=== PATIENT | female | born 1945 | race Caucasian/White ===

== ENCOUNTER 2019-08-01 20:23 | Outpatient (REF) | payer SELFPAY ==
[2019-08-01 20:46] LABS: Estmated Average Glucose 131; Hemoglobin A1C 6.2 % (4.0-6.0)
[2019-08-01 22:07] LABS: Chol HDL Ratio 4.75 mg/dL (0.0-4.40); Cholesterol 242 mg/dL (0-200); Glucose 87 mg/dL (65-115); HDL Cholesterol 51 mg/dL (60-100); LDL Cholesterol Calculated 166 mg/dL (50-129); LDL HDL Ratio 3.25 RATIO (0.00-3.22); Triglycerides 126 mg/dL (0-150)
== END 2019-08-01 20:24 | disposition home or self-care (01) ==
LOC: LAB 20:23
PROVIDERS: Family Provider Nurse Practitioner Family; Visit Provider Dermatology
DX: Z13.9 Encounter for screening, unspecified (principal)
CPT/HCPCS: 80061; 82947; 83036

== ENCOUNTER → 2020-08-01 10:53 | Outpatient (BNVA) | payer SELFPAY | PROVIDERS: Family Provider Nurse Practitioner Family; Visit Provider Family Medicine | DX: Z13.6 Encounter for screening for cardiovascular disorders (principal) | CPT/HCPCS: 80061; 82947; 83036 ==

== ENCOUNTER 2020-10-01 10:13 | Outpatient (CLI) | payer MEDICARE, OTHER, SELFPAY ==
--- NOTE | 2020-10-01 10:23 | MM_ITS ---
WS: [id number] Exam: [place] [id number] Date/Time of Exam: 10/01/2020 10:34 AM Reason For Exam: HX BREAST CA;RT MAST VIEWS: MLO and CC views both breasts. Comparison made with prior exam of 05/02/2014, 02/12/2017 and 09/20/2018. Findings: There was no sign of mass, architectural distortion or suspicious calcification in either breast. He terogeneously dense MM/[place] [id number] Impression: BI-RADS: 2-Benign FOLLOW-UP: 1 Year Follow-up This mammogram was also analyzed by the Computer Aided Detection System R2 Imag e Geomorphology Teacher.
--- NOTE | 2020-10-01 10:23 | MR_ITS ---
WS: [id number] MRI THORACIC SPINE without contrast. HISTORY: BACK PAIN COMPARISON: None available. TECHNIQUE: Multiplanar sequences are performed in sagittal and axial planes. Slight increase in the thoracic kyphosis centered in the upper thoracic spine. Very mild RIGHT curvat ure. No acute compression fractures. There is no marrow edema. No chronic compression fracture. Signa l within the cord is normal. Conus tapers normally ends at L1. T1-2: Normal. T2-3: Bilateral foraminal stenosis is mild. T3-4: Normal. T4-5: Mild bilateral facet joint arthritis. T5-6: Normal. T6-7: Normal. T7-8: Mild facet joint arthritis with a very tiny central disc protrusion. No stenosis. T8-9: Normal. T9-10: Mild bilateral facet joint arthritis encroaching into the thecal sac. Mild foraminal narrowin g. T10-11: Mild bilateral foraminal narrowing. T11-12: Normal. Multiple cystic masses are identified within the liver. Cluster of lobulated cyst measures 4.6 x 2.2 cm. There are additional cysts present. To confirm their benign nature additional imaging should be o btained. MR/MR thoracic spin wo con* [id number] IMPRESSION: 1. Multilevel mild facet joint arthritis as described above. No significant ce ntral stenosis. 2. Multilevel mild foraminal narrowing as above. 3. Multiple cystic masses are noted within the liver. Incompletely visualized and further characterization is recommended. Consider ultrasound RIGHT upper qu adrant or CT abdomen and pelvis with contrast.
== END 2020-10-01 10:14 | disposition home or self-care (01) ==
LOC: RADSHAW 10:19
PROVIDERS: PCP Nurse Practitioner Family; Visit Provider Nurse Practitioner Family
DX: M54.6 Pain in thoracic spine (principal); M47.814 Spondylosis without myelopathy or radiculopathy, thoracic region; Z85.3 Personal history of malignant neoplasm of breast; Z90.11 Acquired absence of right breast and nipple
CPT/HCPCS: 72146; 77065

== ENCOUNTER 2020-10-22 11:16 | Outpatient (CLI) | payer MEDICARE, OTHER, SELFPAY ==
--- NOTE | 2020-10-22 11:21 | CT_ITS ---
WS: [id number] CT ABDOMEN PELVIS TECHNIQUE: Contrast-enhanced CT of the abdomen and pelvis with coronal and sagittal reformatted image s. CLINICAL INFORMATION: CYSTIC LESIONS LIVER/ABN MRI/HX OF BREAST CANCER COMPARISON: MRI thoracic October 01, 2020 DLP: 917.[address] scans at [facility] use at least one of these dose optimization techniques: automat ed exposure control; mA and/or kV adjustment per patient size (includes targeted exams where dose is matched to clinical indication); or iterative reconstruction. FINDINGS: Diffuse fatty infiltration of the liver. Multiple simple appearing cysts in both hepatic lobes. Large st cyst in left hepatic lobe dome of the liver with a few septations measuring 5.3 x 4.2 x 6.3 CM. No rmal portal vein and splenic vein. Gallbladder is contracted. Large esophageal hiatal hernia. Atelect asis in the lung bases. Normal spleen. Adrenal glands are normal. Normal renal parenchymal enhancement. No hydronephrosis. Normal pancreas. Normal caliber abdominal aorta. Mild aortic calcification. No abdominal lymphadenopathy. Sigmoid div erticulosis. No evidence of acute diverticulitis. Fat-containing umbilical hernia. No pelvic or ingui nal lymphadenopathy. Lumbar curve convex left. Benign appearing bone lesion right ilium. CT/CT abdomen pelvis w con* [id number] IMPRESSION: 1. Diffuse fatty infiltration of the liver. 2. Numerous hepatic cysts in both hepatic lobes largest in the left hepatic lo be described above. 3. No hydronephrosis in either kidney. 4. Large esophageal hiatal hernia. 5. Fat-containing umbilical hernia. 6. Sigmoid diverticulosis. No evidence of acute diverticulitis.
[2020-10-22] MEDS: iohexol 300 mg/mL 50 mL Btl IV (11:40)
[2020-10-22 12:24] LABS: Blood Urea Nitrogen 16 mg/dL (8-23)
[2020-10-22] MEDS: iohexol 300 mg/mL 100 mL Btl IV (12:55)
== END 2020-10-22 11:17 | disposition home or self-care (01) ==
PROVIDERS: PCP Nurse Practitioner Family; Visit Provider Nurse Practitioner Family
DX: Q44.6 Cystic disease of liver (principal); Z85.3 Personal history of malignant neoplasm of breast; R93.5 Abnormal findings on diagnostic imaging of other abdominal regions, including retroperitoneum; K76.0 Fatty (change of) liver, not elsewhere classified; K44.9 Diaphragmatic hernia without obstruction or gangrene; K42.9 Umbilical hernia without obstruction or gangrene; K57.30 Diverticulosis of large intestine without perforation or abscess without bleeding
CPT/HCPCS: 36415; 74177; 82565; 84520

== ENCOUNTER 2020-12-03 06:01 | Outpatient (CLI) | payer MEDICARE, OTHER, SELFPAY ==
--- NOTE | 2020-12-03 06:47 | AMB.MCA ---
Patient Information Referred by: Primary care physician Symptom onset date: 11/26/20 COVID 19 common symptoms: positive cough, dyspnea, fatigue and body aches COVID 19 other sytmptoms: negative requiring more oxygen Severity: mild Treatment prior to arrival: acetaminophen OZH COVID test results: No Data to Display outside results available, scanned Criteria/Plan Inclusion/Exclusion Criteria weight >/= 40kg age >/= 65, has diabetes and age >/= 55 and has hypertension not requiring hospitalization, not requiring oxygen (if not chronically on oxygen) and no increase oxygen requirement (if chronically on oxygen) Patient education patient/family/caregiver received/reviewed fact sheet, Emergency Use Authorization/unapproved drug status discussed with patient/family/caregiver, alternatives to this treatment discussed with patient/family/caregiver, risks and benefits of medication reviewed with patient/family/caregiver, patient/family/caregiver given opportunity for questions, which were answered and patient consents to receiving Monoclonal Antibody Treatment Plan for treatment Meets criteria for Monoclonal Antibody infusion Ordering Monoclonal Antibody infusion for today Other information Discussion of risk benefits and alternatives. Patient had done quite a bit of [employer] research prior to arrival. She initially requested band maneuver Mab as a mono treatment. Discussed with her that that is no longer approved. Recommend the Regeneron because it of its slightly improved efficacy with many of the current circulating COVID-19 variance. Ultimately patient agreed to the Regeneron.
[2020-12-03 06:58] VITALS: BMI 23.3
[2020-12-03 06:59] VITALS: BP 151/85; PULSE 70; RESP 18; O2SAT 94
[2020-12-03 08:39] VITALS: BP 175/94; PULSE 66; RESP 14; O2SAT 93
[2020-12-03 09:08] VITALS: BP 139/68; PULSE 65; RESP 16; O2SAT 98
[2020-12-03 10:07] VITALS: BP 128/79; PULSE 66; RESP 15; O2SAT 96
--- NOTE | 2020-12-03 10:32 | PC.NURSE ---
Regen infusion complete; vs stable with no adverse effects noted; pt ambulated to exit independently in nad.
== END 2020-12-03 06:02 | disposition home or self-care (01) ==
LOC: ER 06:02
PROVIDERS: PCP Nurse Practitioner Family; Visit Provider Nurse Practitioner Family
DX: U07.1 COVID-19 (principal)
CPT/HCPCS: 96365

== ENCOUNTER → 2021-06-13 11:55 | Outpatient (BNVA) | payer MEDICARE, OTHER, SELFPAY | PROVIDERS: PCP Nurse Practitioner Family; Visit Provider Nurse Practitioner Family | DX: Z20.822 Contact with and (suspected) exposure to COVID-19 (principal); R50.9 Fever, unspecified; R05.9 Cough, unspecified | CPT/HCPCS: 87635 ==

== ENCOUNTER 2021-07-23 10:14 | Emergency (ER) | payer MEDICARE, OTHER, SELFPAY ==
[2021-07-23 10:34] VITALS: BP 172/77; PULSE 81; RESP 16; TEMP 36.8; O2SAT 97; BMI 23.0
--- NOTE | 2021-07-23 10:44 | XR_ITS ---
WS: [id number] PORTABLE CHEST HISTORY: chest pain COMPARISON: None available. Lungs are clear and well expanded. No pleural effusion or pneumothorax. Cardiac size: Normal. Mediastinum/Aorta: Normal mediastinum. No osseous abnormality seen. XR/XR chest 1V portable [id number] IMPRESSION: Unremarkable portable chest.
--- NOTE | 2021-07-23 10:52 | W.ED.CHESTPA ---
HPI - Chest Pain General: Chief Complaint: Chest Pain Stated Complaint: Chest Pains Time Seen by Provider: 07/23/21 10:44 History of Present Illness: 76-year-old female presents to the emergency room with complaint of chest discomfort. She has describes a left-sided chest discomfort that radiates slightly inferiorly but not into her arms or neck sometimes into the right side of her back. About a week ago she was seen by her primary care doctor with racing heart rate they gave her some medication for anxiety. I do not have the name of the medication at the time of dictation. States her heart rate when she seen the doctor was up to 130. She states that medicine seems to make the chest discomfort better. She does get some shortness of breath with it no diaphoresis. She she has not had any known previous episode of coronary artery disease she is not diabetic. MD complaint: chest discomfort Onset (ago): week(s) (1) Timing of current episode: episodic Onset: during rest Pain location: left chest Pain radiation: back Severity: mild Quality: sharp Relieving factors: other (Medication) Exacerbating factors: nothing Associated symptoms: Reports palpitations; Deny abdominal pain, diaphoresis, dyspnea, fever(s), leg edema, nausea, sense of impending doom, syncope or vomiting Treatment prior to arrival: none Review of Systems Const: Denies: fever(s) or diaphoresis ENMT: Denies: throat pain, ear or mastoid pain, nasal discharge or nasal congestion Card: Reports: chest pain and palpitations; Denies: syncope Resp: Denies: dyspnea GI: Denies: abdominal pain, nausea or vomiting : Denies: flank pain, difficulty voiding, dysuria, urinary frequency or urinary urgency Skin/Breast: Denies: rash or pruritus PFS ED PFSH: Medical History Anxiety Social History Smoking and tobacco status: never smoked Physical Exam Const: COMMON NORMALS: no acute distress GENERAL APPEARANCE: cooperative and comfortable ORIENTATION/CONSCIOUSNESS: Yes awake, Yes oriented to person, Yes oriented to place and Yes oriented to time HENMT: COMMON NORMALS: normocephalic, atraumatic and hearing grossly normal bilaterally HEAD & SCALP: normocephalic and atraumatic Neck/C-Spine: COMMON NORMALS: no JVD Resp: COMMON NORMALS: normal respiratory effort, No retractions, No use of accessory muscles and clear to auscultation bilaterally AUSCULTATION: clear to auscultation bilaterally Cardio: COMMON NORMALS: no JVD, regular rate, regular rhythm and No murmurs present (Cardio) RATE: regular rate RHYTHM: regular rhythm GI: COMMON NORMALS: Soft to palpation and No hepatosplenomegaly present AUSCULTATION: Yes normoactive bowel sounds PALPATION: Yes Soft to palpation, No Tenderness to palpation present (GI), No Guarding due to palpation present (GI) and Yes No hepatosplenomegaly present Extremity: COMMON NORMALS: normal to inspection, capillary refill normal, no clubbing, cyanosis or edema, no calf tenderness and no pedal edema Neuro: SENSORIUM/ORIENTATION: Yes oriented to person, Yes oriented to place and Yes oriented to time Skin: COMMON NORMALS: no rashes or lesions noted GENERAL SKIN EXAM: no rashes or lesions noted Course Vital Signs: Vital signs: Vital Signs Temperature 98 F 07/23/21 16:04 Pulse Rate 72 07/23/21 16:04 Respiratory Rate 18 07/23/21 16:04 Blood Pressure 115/61 07/23/21 16:04 Pulse Oximetry 96 07/23/21 16:04 MDM - Chest Pain Medical Decision Making Labs imaging and EKG reviewed patient has very atypical symptoms beginning when discharged home set up for an outpatient stress test as well as a Holter monitor. Have her start aspirin daily. Continue her other medications particularly the metoprolol. Return if she has further problems. Medical Records I reviewed the patient's medical records. Lab Data I reviewed the patient's lab results. : 07/23/21 11:05 07/23/21 11:05 Radiology Impressions Chest X-Ray 07/23/21 10:44 IMPRESSION: Unremarkable portable chest. Laboratory Results WBC 7.3 10^3/uL (4.0-10.0) 07/23/21 11:05 RBC 4.60 10^6/uL (4.1-5.3) 07/23/21 11:05 Hgb 13.7 g/dL (11.5-15.3) 07/23/21 11:05 Hct 42.2 % (37.0-47.0) 07/23/21 11:05 MCV 91.7 fl (81-99) 07/23/21 11:05 MCH 29.8 pg (28.0-34.0) 07/23/21 11:05 MCHC 32.5 g/dL (30.0-36.0) 07/23/21 11:05 RDW 13.8 % (12.1-15.1) 07/23/21 11:05 Plt Count 268 10^3/cmm (130-400) 07/23/21 11:05 MPV 11.0 fL (7.4-10.4) H 07/23/21 11:05 Neut % (Auto) 73.9 % 07/23/21 11:05 Lymph % (Auto) 17.1 % 07/23/21 11:05 [place] % (Auto) 8.1 % 07/23/21 11:05 Eos % (Auto) 0.3 % 07/23/21 11:05 Baso % (Auto) 0.3 % 07/23/21 11:05 Neut # (Auto) 5.38 10^3/uL (1.8-7.7) 07/23/21 11:05 Lymph # (Auto) 1.2 10^3/uL (0.8-4.8) 07/23/21 11:05 [place] # (Auto) 0.6 10^3/uL (0.2-0.9) 07/23/21 11:05 Eos # (Auto) 0.0 10^3/uL (0.0-0.8) 07/23/21 11:05 Baso # (Auto) 0.0 10^3/uL (0.0-0.1) 07/23/21 11:05 Nucleated RBC % (auto) 0 % 07/23/21 11:05 Nucleated RBCs # 0.0 /100WBC 07/23/21 11:05 Sodium 140 mmol/L (136-145) 07/23/21 11:05 Potassium 4.7 mmol/L (3.5-5.1) 07/23/21 11:05 Chloride 103 mmol/L (98-107) 07/23/21 11:05 Carbon Dioxide 25 mmol/L (22-29) 07/23/21 11:05 Anion Gap 16.7 (5-19) 07/23/21 11:05 BUN 16 mg/dL (8-23) 07/23/21 11:05 Creatinine 0.5 mg/dL (0.5-0.9) 07/23/21 11:05 GFR Calculation Not Reportable 07/23/21 11:05 Glucose 81 mg/dL (65-115) 07/23/21 11:05 Calculated Osmolality 290 mOsm/kg (285-295) 07/23/21 11:05 Calcium 9.3 mg/dL (8.5-10.5) 07/23/21 11:05 Total Bilirubin 0.2 mg/dL (0.15-1.2) 07/23/21 11:05 AST 25 U/L (0-32) 07/23/21 11:05 ALT 18 U/L (0-33) 07/23/21 11:05 Alkaline Phosphatase 122 IU/L (35-105) H 07/23/21 11:05 Troponin T Baseline 14 ng/L (0-10) H 07/23/21 11:05 Troponin T 120 Minute 13.44 ng/L (0-10) H 07/23/21 13:57 Delta Troponin T -0.56 ABS# (0-10) L 07/23/21 13:57 Total Protein 6.7 g/dL (6.6-8.7) 07/23/21 11:05 Albumin 4.2 g/dL (3.5-5.2) 07/23/21 11:05 Globulin 2.5 g/dL (1.3-4.6) 07/23/21 11:05 Discharge Plan Discharge Patient Disposition: Home Clinical Impression: Atypical chest pain, Heart palpitations Condition: Stable Prescriptions: No Action lorazepam 0.5 mg tablet 0.25 - 0.5 mg PO BID PRN (Reason: Anxiety) 0RF pantoprazole 40 mg tablet,delayed release (DR/EC) 40 mg PO DAILY PRN (Reason: Heartburn) 0RF metoprolol succinate 25 mg tablet extended release 24 hr 25 mg PO DAILY 0RF olmesartan 20 mg tablet 10 mg PO DAILY 0RF escitalopram oxalate 10 mg tablet 10 mg PO DAILY 0RF MagOx 400 mg (241.3 mg magnesium) Tablet 400 mg PO DAILY 0RF aspirin 81 mg Tablet,Chewable 81 mg PO DAILY 0RF garlic 200 mg Tablet 200 mg PO DAILY 0RF Discharge Orders: Discharge ED (Routine); Ordered 07/23/21 Ordered By: Jamar Fletcher Referrals: Asuncion Joy APN [Primary Care Provider] - Discharge Diet: Usual diet Discharge Activity: Limit activity as instructed Patient Instructions: Opioid Safety Activity Restrictions/Additional Instructions: Arrangements for you to 48-hour Holter and Lexiscan sestamibi stress test. Continue your aspirin and metoprolol. They will also make arrangements for you to follow-up with cardiology. Coding Level of Care Code ED Police Communications Operator for Herrerag Fwd Exam Comprehensive
[2021-07-23] MEDS: aspirin 81 mg Chew Tablet 324 MG PO (10:56)
[2021-07-23 11:28] VITALS: BP 111/62; RESP 18; TEMP 35.5
[2021-07-23 11:30] VITALS: PULSE 98
[2021-07-23 11:35] LABS: Basophils % 0.3 %; Eosinophils % 0.3 %; Hematocrit 42.2 % (37.0-47.0); Hemoglobin 13.7 g/dL (11.5-15.3); Lymphocytes # 1.2 10^3/uL (0.8-4.8); Lymphocytes % 17.1 %; Mean Corpuscular HGB Conc 32.5 g/dL (30.0-36.0); Mean Corpuscular Hemoglobin 29.8 pg (28.0-34.0); Mean Corpuscular Volume 91.7 fl (81-99); Monocytes # 0.6 10^3/uL (0.2-0.9); Monocytes % 8.1 %; Neutrophils # 5.38 10^3/uL (1.8-7.7); Neutrophils % 73.9 %; Nucleated Red Blood Cells % 0 %; Platelet Count 268 10^3/cmm (130-400); Red Cell Distribution Width 13.8 % (12.1-15.1); White Blood Count 7.3 10^3/uL (4.0-10.0)
[2021-07-23 11:53] LABS: Troponin(5th) Baseline 14 ng/L (0-10)
[2021-07-23 12:00] VITALS: BP 116/65; PULSE 79; RESP 18; O2SAT 96
[2021-07-23 12:08] LABS: Albumin Level 4.2 g/dL (3.5-5.2); Alkaline Phosphatase 122 IU/L (35-105); Blood Urea Nitrogen 16 mg/dL (8-23); Calcium 9.3 mg/dL (8.5-10.5); Carbon Dioxide 25 mmol/L (22-29); Chloride 103 mmol/L (98-107); Globulin 2.5 g/dL (1.3-4.6); Glucose 81 mg/dL (65-115); Osmolality Calculated 290 mOsm/kg (285-295); Sodium 140 mmol/L (136-145); Total Bilirubin 0.2 mg/dL (0.15-1.2); Total Protein 6.7 g/dL (6.6-8.7)
[2021-07-23 12:09] LABS: Anion Gap 16.7 (5-19); Potassium 4.7 mmol/L (3.5-5.1)
[2021-07-23 12:10] LABS: Alanine Aminotransferase 18 U/L (0-33); Aspartate Amino Transferase 25 U/L (0-32)
--- NOTE | 2021-07-23 12:44 | ECG_ITS ---
[facility] Test Date: 2021-07-23 Pat Name: Parvin Hood Department: Room: Gender: Female Clerk Operator: : 1945 Requested By: Jamar Duarte Order Number: [id number] Carmita MD: Era Goel M.D. Measurements Intervals [place] Rate: 72 P: 73 CO: 126 QRS: 72 QRSD: 83 T: 69 QT: 388 QTc: 425 Interpretive Statements SINUS RHYTHM POSSIBLE RIGHT VENTRICULAR CONDUCTION DELAY [RSR (QR) IN V1/V2] Compared to ECG 07/23/2021 10:32:56 No significant changes Electronically Signed On 07-23-2021 14:44:01 TECHNOLOGY STRATEGIST by Era Goel M.D. [id number]
--- NOTE | 2021-07-23 14:17 | PC.ADMIT ---
826 [facility] Admission Note: The patient,Parvin Hood,76 y/o, was given written information regarding hospital policies, unit procedures and contact persons. Patient's smoking status: never smoked. Vital Signs - 8 hr 07/23/21 10:34 07/23/21 11:28 Temperature 98.3 F 96 F L Pulse Rate 81 Respiratory Rate 16 18 Blood Pressure 172/77 111/62 Pulse Oximetry 97 Resting in bed, Lab was just here for FU troponin. She is nervous & writing down all her VSs. Pleasant & cooperative.
[2021-07-23 14:38] LABS: Troponin 5 2HR 13.44 ng/L (0-10)
[2021-07-23 14:45] LABS: Troponin 5 2HR Delta -0.56 ABS# (0-10)
[2021-07-23 15:00] VITALS: PULSE 74; TEMP 36.6
[2021-07-23 16:04] VITALS: BP 115/61; PULSE 72; RESP 18; TEMP 36.6; O2SAT 96
--- NOTE | 2021-07-23 16:44 | ECG_ITS ---
[facility] Test Date: 2021-07-23 Pat Name: Parvin Hood Department: Room: Gender: Female Car Porter: : 1945 Requested By: Jamar Duarte Order Number: [id number] Carmita MD: Era Goel M.D. Measurements Intervals [place] Rate: 78 P: 79 DC: 125 QRS: 74 QRSD: 74 T: 70 QT: 369 QTc: 421 Interpretive Statements SINUS RHYTHM No previous ECG available for comparison Electronically Signed On 07-23-2021 14:45:24 ASSEMBLER MUSICAL EQUIPMENT by Era Goel M.D. [id number]
--- NOTE | 2021-07-24 12:41 | DCPLANNER ---
Addendum entered by Inocencia Valdes 09/04/21 08:49: Patient had a follow up appointment scheduled for 08.19.[address] Goel at [facility] - patient did attend appointment. Addendum entered by Inocencia Valdes 08/07/21 13:35: Patient had a stress test scheduled for 08.06.21 - patient did attend Patient had an appointment at [facility] on 08.07.21 for a holter monitor - patient did attend appointment. Original Note: banking center manager had message to schedule a follow up appointment for patient with [facility] and a 48 hour holter monitor and a stress test. banking center manager called [facility], spoke with Ericka, gave clinic patients information. A follow up appointment is scheduled for Thursday August 19, 2021 at 1:[address] Goel. banking center manager faxed order for stress test to centralized scheduling, who will call patient with appointment information. banking center manager faxed order for halter monitor to [facility] care, who will call patient with appointment information.
== END 2021-07-23 16:25 | disposition home or self-care (01) ==
PROVIDERS: Emergency Provider Family Medicine; PCP Nurse Practitioner Family
DX: R07.89 Other chest pain (principal); R00.2 Palpitations; Z79.82 Long term (current) use of aspirin
CPT/HCPCS: 71045; 80053; 84484; 85025; 93005; 99283

== ENCOUNTER 2021-08-06 08:10 | Outpatient (CLI) | payer MEDICARE, OTHER, SELFPAY ==
[2021-08-06 08:22] VITALS: BMI 23.2
--- NOTE | 2021-08-06 08:37 | NMCV_ITS ---
NM rene perf SPECT r/s* [id number] Parvin Hood Age: 76 Gender: F : 1945 Exam Date: 08/06/2021 09:39 Ordering Phys: Jamar Fletcher DO Technologist: LATANYA Hicks Exam Location: [facility] Indications: CHEST PAIN STRESS TEST Please see separate stress test report in [facility] for full findings IMAGE PROTOCOL Rest/Stress 1 Lexiscan Day Radiopharmaceutical Dose (mCi) Administration Site Administered by Rest: Tc-99m 10.6 IV LATANYA Hicks Sestamibi Stress:Tc-99m 32.7 IV LATANYA Rose Sestamibi Rest: 06-Aug-2021 60 Discovery 630 Stress: 06-Aug-2021 30 Discovery 630 0.4mg Lexiscan. Images obtained in supine and prone position. SPECT RESULTS Technical Quality: Excellent Raw Data Analysis: Normal Image Corrections: No attenuation or motion correction applied Summed Stress Score: 0 Summed Rest Score: 0 Summed Difference Score: 0 PERFUSION FINDINGS SPECT images demonstrate homogeneous tracer distribution throughout the myocardium. FUNCTIONAL RESULTS (calculated via Gated SPECT) Stress Image LV EF (%): 93 Stress EDV (mL):41 TID: 0.63 Stress ESV (mL):3 FUNCTIONAL FINDINGS: The left ventricle is normal in size. Transient Ischemia Dilatation of 0.63. There is hyperdynamic left ventricular systolic function. The left ventricular ejection fraction is hyperdynamic with a value of 93%. There is hyperdynamic left ventricular wall thickening. IMPRESSIONS 1. Myocardial perfusion imaging is normal. 2. Overall left ventricular systolic function is hyperdynamic without regional wall motion abnormalities. 3. The left ventricular ejection fraction is hyperdynamic with a value of 93%. 4. EKG portion of the study will be reported separately. 5. No prior similar studies to compare. Era Goel MD (Electronically Signed) Final Date: 10 August 2021 11:42 S
--- NOTE | 2021-08-06 08:37 | ECG_ITS ---
[facility] Test Date: 2021-08-06 Pat Name: Parvin Hood Department: Room: Gender: Female Audiovisual Technician: Regina Flanagan : 1945 Requested By: Jamar Duarte Order Number: [id number] Carmita MD: Era Goel M.D. Interpretive Statements NAME OF STUDY: LEXISCAN SESTAMIBI STRESS TEST INDICATION: Atypical Chest Pain PROCEDURE: At the baseline, the blood pressure was 123/72 mm Hg with a heart rate of 72 bpm. The electrocardiogram showed sinus rhythm, normal axis with non specific ST depression. ??? The Lexiscan was infused over a period of 20 seconds. A total of 0.4 milligrams of Lexiscan was infused. The stress phase was continued for a total of 5 minutes. Heart rate at the end of the stress phase was 106 bpm with a blood pressure of 133/66 mm Hg. The EKG at the peak infusion revealed sinus tachycardia with half to [address] depression in inferolateral leads. The study was terminated due to protocol completion. ??? Sestamibi was injected 20 seconds after the Lexiscan infusion. ??? Blood pressure at the end of the recovery phase was 128/70 mm Hg with a heart rate of 88 beats per minute. ??? CONCLUSION: 1. Equivocal EKG changes with the LexiScan infusion. 2. No LexiScan induced chest pain or cardiac arrhythmia. 3. Normal blood pressure and heart rate response. 4. Sestamibi/sestamibi perfusion scan pending; see separate report. Electronically Signed On 08-11-2021 16:27:57 MOBILE HOME PARK MANAGER by Era Goel M.D. [id number]
[2021-08-06] MEDS: ondansetron 2 mg/ML SDV 2 mL 4 MG IVP (10:24)
[2021-08-06] MEDS: regadenoson 0.4 Mg/5 ml Syringe IVP (10:24)
[2021-08-06 10:32] VITALS: BP 128/70; PULSE 90
== END 2021-08-06 08:11 | disposition home or self-care (01) ==
LOC: CDL 08:12
PROVIDERS: PCP Nurse Practitioner Family; Visit Provider Family Medicine
DX: R07.89 Other chest pain (principal)
CPT/HCPCS: 78452; 93017; A9500; J2405; J2785

== ENCOUNTER → 2021-08-07 09:49 | Outpatient (BNVA) | payer MEDICARE, OTHER, SELFPAY | PROVIDERS: PCP Nurse Practitioner Family; Visit Provider Internal Medicine Cardiovascular Disease | DX: R07.9 Chest pain, unspecified (principal); R00.1 Bradycardia, unspecified; R00.0 Tachycardia, unspecified | CPT/HCPCS: 93225 ==

== ENCOUNTER → 2021-08-21 15:01 | Outpatient (BNVA) | payer MEDICARE, OTHER, SELFPAY | PROVIDERS: PCP Nurse Practitioner Family; Visit Provider Internal Medicine Cardiovascular Disease | DX: I10 Essential (primary) hypertension (principal); E78.5 Hyperlipidemia, unspecified; F41.9 Anxiety disorder, unspecified | CPT/HCPCS: 99203; 99204 ==

== ENCOUNTER → 2021-12-30 11:51 | Outpatient (BNVA) | payer MEDICARE, OTHER, SELFPAY | PROVIDERS: PCP Nurse Practitioner Family; Visit Provider Internal Medicine Cardiovascular Disease | DX: I10 Essential (primary) hypertension (principal); E78.5 Hyperlipidemia, unspecified; R00.0 Tachycardia, unspecified; F41.9 Anxiety disorder, unspecified | CPT/HCPCS: 99213 ==

== ENCOUNTER 2022-01-28 14:37 | Outpatient (CLI) | payer MEDICARE, OTHER, SELFPAY ==
--- NOTE | 2022-01-28 14:56 | MM_ITS ---
WS: [id number] Left breast diagnostic 3D tomosynthesis digital mammogram, 01/28/2022 Clinical Data: HX OF BREAST CA;RT MASTECTOMY Comparison: 10/01/2020, 09/20/2018, 02/12/2017, 05/02/2014. Findings: The left breast shows heterogeneous density. There are mole markers on the left breast. There are no secondary signs of carcinoma. There are no spiculated masses nor clustered calcifications. MM/[place] [id number] Impression: 1. Negative left breast mammogram. 2. Recommend annual left breast mammogram. BIRADS: 1-Negative FOLLOW UP: 1 Year Follow-up The CAD die drawing checker was used.
== END 2022-01-28 14:38 | disposition home or self-care (01) ==
PROVIDERS: PCP Nurse Practitioner Family; Visit Provider Nurse Practitioner Family
DX: Z85.3 Personal history of malignant neoplasm of breast (principal); Z90.11 Acquired absence of right breast and nipple
CPT/HCPCS: 77061

== ENCOUNTER → 2022-06-30 14:00 | Outpatient (BNVA) | payer MEDICARE, OTHER, SELFPAY | PROVIDERS: PCP Nurse Practitioner Family; Visit Provider Internal Medicine Cardiovascular Disease | DX: R00.0 Tachycardia, unspecified (principal); I10 Essential (primary) hypertension | CPT/HCPCS: 99214; Q3014 ==

== ENCOUNTER 2022-08-18 13:33 | Outpatient (CLI) | payer MEDICARE, OTHER, SELFPAY ==
--- NOTE | 2022-08-18 13:45 | CT_ITS ---
WS: [id number] CT ABDOMEN AND PELVIS WITH CONTRAST HISTORY: ABNORMAL CT SCAN, fatty liver. TECHNIQUE: Imaging performed of the abdomen and pelvis with IV contrast. Single phase imaging of the abdomen. Coronal and sagittal reformats are submitted. All CT scans at [facility] use at [address] one of these dose optimization techniques: automated exposure control; mA and/or kV adjustment per patient size (includes targeted exams where dose is matched to clinical indication); or iterative re construction. IV CONTRAST: Omnipaque 350; 100 mL IV. Oral contrast: Yes. DLP: 356.38 mGy.cm COMPARISON: 10/22/2020 Lower thorax: Lung bases are clear. Heart is normal size. Large hiatal hernia. Liver/biliary system: Normal size liver with numerous, nonenhancing low-attenuation masses consistent with cysts. These have been previously described. The largest cyst contains a septation in the LEFT lobe of the liver measuring 6.1 x 5.2 cm. No solid masses. No bile duct dilatation. Gallbladder: Normal. No gallstones or wall thickening. No pericholecystic fluid. Pancreas: Normal size pancreas and pancreatic duct. No adjacent inflammation. Spleen: Normal size spleen. No mass or infarct. Adrenal glands: Normal. Right kidney: Normal. Left kidney: Normal. Aorta: Mild atherosclerosis with no aneurysm. Lymphadenopathy: None. Free fluid: None. GI tract: Large hiatal hernia. The stomach is also markedly dilated containing food products and J-sh aped. No small bowel obstruction. No wall thickening. Marked diffuse constipation. No appendicitis. N umerous diverticula in the distal colon. No acute diverticulitis. Abdominal wall: Fat containing umbilical hernia. Pelvis: Atrophic uterus. No pelvic mass. Normal bladder. Bones: LEFT curvature lumbar spine. No fractures. CT/CT abdomen pelvis w con* [id number] IMPRESSION: 1. Mild hepatic steatosis. Numerous benign hepatic cysts throughout the liver. 2. Negative gallbladder. 3. Large hiatal hernia. 4. Marked constipation with mild sigmoid diverticulosis. No adenopathy or asci татьяна.
[2022-08-18] MEDS: iohexol 350 mg/mL 500 mL Btl (per mL) PO (15:11)
[2022-08-18] MEDS: iohexol 350 mg/mL 500 mL Btl (per mL) IV (15:14)
== END 2022-08-18 13:34 | disposition home or self-care (01) ==
LOC: RAD 13:39
PROVIDERS: PCP Nurse Practitioner Family; Visit Provider Nurse Practitioner Family
DX: R93.5 Abnormal findings on diagnostic imaging of other abdominal regions, including retroperitoneum (principal); K76.0 Fatty (change of) liver, not elsewhere classified; K76.89 Other specified diseases of liver; K44.9 Diaphragmatic hernia without obstruction or gangrene; K59.00 Constipation, unspecified; K57.30 Diverticulosis of large intestine without perforation or abscess without bleeding
CPT/HCPCS: 74177; Q9967

== ENCOUNTER → 2022-09-15 14:33 | Outpatient (BNVA) | payer MEDICARE, OTHER, SELFPAY | PROVIDERS: PCP Nurse Practitioner Family; Visit Provider Internal Medicine | DX: E78.5 Hyperlipidemia, unspecified (principal); R07.9 Chest pain, unspecified; I10 Essential (primary) hypertension; R06.09 Other forms of dyspnea | CPT/HCPCS: 99214 ==

== ENCOUNTER 2022-09-30 08:08 | Outpatient (CLI) | payer MEDICARE, OTHER, SELFPAY ==
--- NOTE | 2022-09-30 08:30 | USCV_ITS ---
Carine Hood Age: 77 Gender: F : 1945 Exam Date: 09/30/2022 08:47 Ordering Phys: Shon Clinton M.D ([email or web address]) Technologist: Dwayne Ceballos Exam Location: [facility] – [place] Indication: sob BP: 119 / 76 HR: 69 Rhythm: Sinus Technical Quality: Adequate MEASUREMENTS (Male / Female) Normal Values 2D ECHO LV Diastolic Diameter PLAX 2.9 cm 4.2 - 5.9 / 3.9 - 5.3 cm LV Systolic Diameter PLAX 1.7 cm IVS Diastolic Thickness 0.9 cm 0.6 - 1.0 / 0.6 - 0.9 cm IVS Systolic Thickness 1.3 cm LVPW Diastolic Thickness 1.1 cm 0.6 - 1.0 / 0.6 - 0.9 cm LVPW Systolic Thickness 0.9 cm LVOT Diameter 2.0 cm LV Ejection Fraction 2D Teich 72.9 % LV Ejection Fraction MOD 2C 62.9 % LV Ejection Fraction 2C AL 62.3 % LA Diameter 3.5 cm IVC Diameter 1.3 cm M-MODE Aortic Annulus Diameter 3.0 cm LA Ao Ratio MM 1.2 MV E Point Septal Separation 0.8 cm DOPPLER AV Peak Velocity 130.0 cm/s LVOT Peak Velocity 107.0 cm/s AV Area Cont Eq vti 2.2 cm squared AV Area Cont Eq pk 2.7 cm squared MV Area PHT 4.9 cm squared Mitral E to A Ratio 1.0 MV E' Velocity 44.0 cm/s Mitral E to MV E' Ratio 7.2 Mitral E to LV E' Lateral Ratio 7.5 Mitral E to LV E' Septal Ratio 6.9 TR Peak Velocity 279.3 cm/s TR Peak Gradient 31.2 mmHg TV Peak E Velocity 113.0 cm/s Right Atrial Pressure 3.0 mmHg Pulmonary Artery Systolic Pressu 34.2 mmHg RV Acceleration Time 0.1 s FINDINGS Left Ventricle Left ventricle is normal in size. LV systolic function is normal with EF of 60 to 65%. No regional wall motion abnormalities. Right Ventricle Grossly normal. Right Atrium Normal in size Left Atrium Normal in size Mitral Valve Structurally normal mitral valve. Mild mitral regurgitation. Aortic Valve Structurally normal aortic valve. No significant stenosis or regurgitation. Tricuspid Valve Mild tricuspid regurgitation. Insufficient TR jet to calculate RVSP. Pulmonic Valve Not well-visualized. Pericardium Normal Aorta Normal in size IVC Appears to be normal CONCLUSIONS LV systolic function is normal with EF of 60 to 65%. Mild mitral regurgitation Mild tricuspid regurgitation No comparison studies are available Shon Clinton MD (Electronically Signed) Final Date: 13 Oct 2022 15:37 S
== END 2022-09-30 08:09 | disposition home or self-care (01) ==
LOC: RAD 08:12
PROVIDERS: PCP Nurse Practitioner Family; Visit Provider Internal Medicine
DX: R06.02 Shortness of breath (principal); R07.9 Chest pain, unspecified; I34.0 Nonrheumatic mitral (valve) insufficiency; I07.1 Rheumatic tricuspid insufficiency
CPT/HCPCS: 93306

== ENCOUNTER → 2023-01-15 10:10 | Outpatient (BNVA) | payer MEDICARE, OTHER, SELFPAY | PROVIDERS: PCP Nurse Practitioner Family; Visit Provider Internal Medicine | DX: E78.5 Hyperlipidemia, unspecified (principal); R00.0 Tachycardia, unspecified; I10 Essential (primary) hypertension; R06.00 Dyspnea, unspecified | CPT/HCPCS: 99214 ==

== ENCOUNTER 2023-02-09 12:57 | Outpatient (CLI) | payer MEDICARE, OTHER, SELFPAY ==
--- NOTE | 2023-02-09 13:09 | MM_ITS ---
WS: [id number] DIAGNOSTIC LEFT DIGITAL TOMOSYNTHESIS MAMMOGRAPHY WITH CAD. HISTORY: ANNUAL - HX BR CA; RT MST COMPARISON: 01/28/2022 and 10/01/2020 Technique: CC, MLO and ML views. Breast composition: There are scattered areas of fibroglandular density. No suspicious masses. There are a few benign calcifications. No distortion. IMPRESSION: MM/[place] [id number] BI-RADS: 2-Benign FOLLOW UP: 1 Year Follow-up
== END 2023-02-09 12:58 | disposition home or self-care (01) ==
PROVIDERS: PCP Nurse Practitioner Family; Visit Provider Nurse Practitioner Family
DX: Z85.3 Personal history of malignant neoplasm of breast (principal); Z90.11 Acquired absence of right breast and nipple
CPT/HCPCS: 77061; G0279

== ENCOUNTER 2023-06-09 08:22 | Outpatient (CLI) | payer MEDICARE, OTHER, SELFPAY ==
--- NOTE | 2023-06-09 08:45 | USCV_ITS ---
Carine Hood Age: 78 Gender: F : 1945 Exam Date: 06/09/2023 08:39 Ordering Phys: Shon Clinton M.D ([email or web address]) Technologist: CT Exam Location: [facility] – [place] Indication: sob BP: 112 / 78 HR: 67 Rhythm: Sinus Technical Quality: Adequate MEASUREMENTS (Male / Female) Normal Values 2D ECHO LV Chamber Size 3.9 cm RV Chamber Size 3.1 cm LVOT Diameter 2.0 cm LV Ejection Fraction MOD 2C 64.7 % LV Ejection Fraction 2C AL 64.5 % LA Diameter 3.3 cm LA Width 3.5 cm LA Height 4.1 cm RA Width 4.1 cm RA Height 3.4 cm Aorta at Sinotubular Diameter 2.5 cm IVC Diameter 1.2 cm M-MODE Aortic Annulus Diameter 3.1 cm LA Ao Ratio MM 1.2 MV E Point Septal Separation 0.5 cm DOPPLER AV Peak Velocity 129.0 cm/s LVOT Peak Velocity 118.0 cm/s AV Area Cont Eq vti 3.8 cm squared AV Area Cont Eq pk 2.9 cm squared MV E' Velocity 8.0 cm/s TR Peak Velocity 124.0 cm/s TR Peak Gradient 6.2 mmHg TV Peak E Velocity 93.0 cm/s Right Atrial Pressure 3.0 mmHg Pulmonary Artery Systolic Pressu 9.2 mmHg PV Peak Velocity 108.0 cm/s FINDINGS Left Ventricle Left ventricle is normal size. LV systolic function is normal with EF of 60 to 65%. No regional wall motion abnormalities are seen. Right Ventricle Normal in size and function Right Atrium Normal in size Left Atrium Normal in size Mitral Valve Structurally normal mitral valve. Trace mitral regurgitation Aortic Valve Aortic valve is thickened. No significant stenosis or regurgitation. Tricuspid Valve Mild tricuspid regurgitation. Insufficient TR jet to calculate RVSP. Pulmonic Valve Not well visualized Pericardium Normal Aorta Normal in size IVC Appears to be normal CONCLUSIONS LV systolic function is normal with EF of 60 to 65%. Trace mitral regurgitation Mild tricuspid regurgitation Compared to prior echocardiogram from 09/30/2022, no significant changes are seen Shon Clinton MD (Electronically Signed) Final Date: 12 June 2023 15:24 S
== END 2023-06-09 08:23 | disposition home or self-care (01) ==
LOC: RAD 08:23
PROVIDERS: PCP Nurse Practitioner Family; Visit Provider Internal Medicine
DX: R06.02 Shortness of breath (principal); R00.0 Tachycardia, unspecified; I07.1 Rheumatic tricuspid insufficiency; R06.09 Other forms of dyspnea
CPT/HCPCS: 93306

== ENCOUNTER → 2023-07-14 14:57 | Outpatient (BNVA) | payer MEDICARE, OTHER, SELFPAY | PROVIDERS: PCP Nurse Practitioner Family; Visit Provider Internal Medicine | DX: E78.5 Hyperlipidemia, unspecified (principal); I10 Essential (primary) hypertension; R06.09 Other forms of dyspnea | CPT/HCPCS: 99214 ==

== ENCOUNTER → 2024-01-19 13:35 | Outpatient (BNVA) | payer MEDICARE, OTHER, SELFPAY | PROVIDERS: PCP Nurse Practitioner Family; Visit Provider Internal Medicine | DX: E78.5 Hyperlipidemia, unspecified (principal); I10 Essential (primary) hypertension; R06.09 Other forms of dyspnea | CPT/HCPCS: 99214 ==

== ENCOUNTER 2024-05-08 09:24 | Outpatient (CLI) | payer MEDICARE, OTHER, SELFPAY ==
--- NOTE | 2024-05-08 09:30 | MM_ITS ---
WS: [id number] DIAGNOSTIC LEFT DIGITAL TOMOSYNTHESIS MAMMOGRAPHY WITH CAD. HISTORY: HISTORY OF BREAST CANCER, status post RIGHT mastectomy. COMPARISON: 02/09/2023, 01/28/2022 Technique: CC, MLO and ML views. Breast composition: The breasts are heterogeneously dense, which may obscure small masses. No suspicious calcification. No distortion. No interval change in appearance of the breast. MM/MM diag LT tomosynthesis [id number] IMPRESSION: BI-RADS: 2 - Benign FOLLOW UP: 1 Year Follow-up
== END 2024-05-08 09:25 | disposition home or self-care (01) ==
PROVIDERS: PCP Nurse Practitioner Family; Visit Provider Nurse Practitioner Family
DX: Z85.3 Personal history of malignant neoplasm of breast (principal); R92.333 Mammographic heterogeneous density, bilateral breasts
CPT/HCPCS: 77061; G0279

== ENCOUNTER → 2024-08-01 10:12 | Outpatient (BNVA) | payer MEDICARE, OTHER, SELFPAY | PROVIDERS: PCP Nurse Practitioner Family; Visit Provider Internal Medicine | DX: E78.5 Hyperlipidemia, unspecified (principal); I10 Essential (primary) hypertension; R06.09 Other forms of dyspnea | CPT/HCPCS: 99214 ==

== ENCOUNTER → 2025-01-30 15:10 | Outpatient (BNVA) | payer MEDICARE, OTHER, SELFPAY | PROVIDERS: PCP Nurse Practitioner Family; Visit Provider Internal Medicine | DX: E78.5 Hyperlipidemia, unspecified (principal); I10 Essential (primary) hypertension; R06.09 Other forms of dyspnea | CPT/HCPCS: 99213 ==

== ENCOUNTER → 2025-04-05 09:18 | Outpatient (BNVA) | payer MEDICARE, OTHER, SELFPAY | PROVIDERS: PCP Nurse Practitioner Family; Visit Provider Podiatrist Foot & Ankle Surgery | DX: M79.2 Neuralgia and neuritis, unspecified (principal); M24.572 Contracture, left ankle; S86.112A Strain of other muscle(s) and tendon(s) of posterior muscle group at lower leg level, left leg, initial encounter; M76.62 Achilles tendinitis, left leg; X58.XXXA Exposure to other specified factors, initial encounter; Z46.89 Encounter for fitting and adjustment of other specified devices | CPT/HCPCS: 73630 ==

== ENCOUNTER 2025-04-05 10:18 | Outpatient (CLI) | payer MEDICARE, OTHER, SELFPAY | END 2025-04-05 10:19 | disposition home or self-care (01) | LOC: SPT 10:20 | PROVIDERS: PCP Nurse Practitioner Family; Visit Provider Podiatrist Foot & Ankle Surgery | DX: Z46.89 Encounter for fitting and adjustment of other specified devices (principal); M79.2 Neuralgia and neuritis, unspecified; M24.572 Contracture, left ankle | CPT/HCPCS: L4397 ==

== ENCOUNTER → 2025-04-25 08:43 | Outpatient (BNVA) | payer MEDICARE, OTHER, SELFPAY | PROVIDERS: PCP Nurse Practitioner Family; Visit Provider Podiatrist Foot & Ankle Surgery | DX: M79.2 Neuralgia and neuritis, unspecified (principal); M24.572 Contracture, left ankle; S86.112A Strain of other muscle(s) and tendon(s) of posterior muscle group at lower leg level, left leg, initial encounter; M76.62 Achilles tendinitis, left leg; X58.XXXA Exposure to other specified factors, initial encounter | CPT/HCPCS: 99213 ==

== ENCOUNTER 2025-05-16 10:28 | Outpatient (CLI) | payer MEDICARE, OTHER, SELFPAY ==
--- NOTE | 2025-05-16 10:37 | MM_ITS ---
WS: [id number] DIAGNOSTIC LEFT DIGITAL BREAST TOMOSYNTHESIS WITH CAD HISTORY: HX OF BREAST CA COMPARISON: 05/08/2024, 02/09/2023, 01/28/2022 Left craniocaudal, mediolateral oblique and medial lateral images are submitted with tomosynthesis and SM. Computer aided detection performed. Breast composition: The breasts are heterogeneously dense, which may obscure small masses. No suspicious masses or calcifications. No architectural distortion. Very similar fibroglandular pattern when compared to the most recent exam. MM/MM diag tomosynthesis [id number] IMPRESSION: BI-RADS: 2 - Benign FOLLOW UP: 1 Year Follow-up
== END 2025-05-16 10:29 | disposition home or self-care (01) ==
LOC: RAD 10:30
PROVIDERS: PCP Nurse Practitioner Family; Visit Provider Nurse Practitioner Family
DX: R85.3 Abnormal level of substances chiefly nonmedicinal as to source in specimens from digestive organs and abdominal cavity (principal); R92.333 Mammographic heterogeneous density, bilateral breasts; R92.323 Mammographic fibroglandular density, bilateral breasts
CPT/HCPCS: 77061; 77063